=== PATIENT | female | born 1970 | race Caucasian/White ===

== ENCOUNTER 2025-09-04 12:24 | Inpatient (IN) | payer OTHER ==
[2025-09-04 12:47] LABS: #Basophils 0.04 10x3/uL (0.0-0.2); #Eosinophils 0.15 10x3/uL (0.0-0.7); #Monocytes 0.82 10x3/uL (0.11-0.59); #Neutrophils 8.01 10x3/uL (1.40-6.50); %Basophils 0.4 % (0.0-1.0); %Eosinophils 1.4 % (0.0-10.0); %Lymphocytes 15.0 % (21.0-51.0); %Monocytes 7.7 % (0.0-10.0); %Neutrophils 75.3 % (42.0-75.0); Hematocrit 41.5 % (36.0-47.0); Hemoglobin 12.8 g/dL (12.0-16.0); Mean Corpuscular Hemoglobin 22.5 pg (27.0-31.0); Mean Corpuscular Volume 72.8 fL (78.0-98.0); Platelet Count 284 10x3/uL (130-400); Red Blood Cell (RBC) Count 5.70 mill/uL (4.20-5.40); White Blood Cell (WBC) Count 10.64 10x3/uL (4.8-10.8)
[2025-09-04] MEDS ORDERED: Ondansetron PF 4 MG/2 ML Vial ONE ×2 (12:52→14:36)
[2025-09-04] MEDS ORDERED: Ketorolac Tromethamine 30 MG (1 mL) VIAL ONE (12:52)
[2025-09-04 13:04] LABS: ALT (SGPT) 16 U/L (Less than 34); AST (SGOT) 24 U/L (11-34); Albumin 3.7 g/dL (3.1-4.5); Alkaline Phosphatase 86 U/L (40-110); Anion Gap 14 mmol/L (10-20); BUN (Urea Nitrogen) 10 mg/dL (9.8-20.1); Bilirubin, Total 0.6 mg/dL (0.3-1.2); Calc. Creatinine Clearance 0 mL/min (70-130); Calcium 9.3 mg/dL (7.8-10.44); Carbon Dioxide 23 mmol/L (22-29); Chloride 109 mmol/L (98-107); Globulin 2.9 g/dL (2.4-3.5); Glucose 94 mg/dL (70-105); Lipase 18 U/L (8-78); Potassium 3.5 mmol/L (3.5-5.1); Sodium 142 mmol/L (136-145)
[2025-09-04 13:10] LABS: Microcytosis SLIGHT = 6-15 cells HPF (0-5); Ovalocytes SLIGHT = 2-5 cells HPF (0-1); Platelet Adequacy Comment Platelets Normal
[2025-09-04 14:07] LABS: CAUTI Indications for Culture Dysuria,urgency,freq; Glucose, Urine (Dipstick) Normal (Negative); Leukocyte 250 Leu/uL (Negative); Protein, Urine (Dipstick) Negative (Neg-Trace); Specific Gravity, Urine 1.009 (1.002-1.036)
[2025-09-04 14:08] LABS: Bacteria/HPF 1+ HPF (None Seen)
[2025-09-04 14:09] LABS: Urine Culture Reflex Yes Yes
[2025-09-04] MEDS ORDERED: Calcium Carbonate 500 MG ChewTAB PO PRN (14:49)
[2025-09-04] MEDS ORDERED: Ketorolac Tromethamine 30 MG (1 mL) VIAL IVP PRN (14:49)
[2025-09-04] MEDS ORDERED: Senokot S 8.6-50 MG TAB PO PRN (14:49)
[2025-09-04 15:45] VITALS: BMI 29.9
[2025-09-04] MEDS: Ketorolac Tromethamine 30 MG (1 mL) VIAL IVP PRN (20:46)
[2025-09-04] MEDS: cefTRIAXone\\ROCEPHIN 1 GM in Sodium Chloride 0.9% 100 ML IVPB SCH (20:50)
[2025-09-04] MEDS: QUEtiapine 25 MG TAB PO SCH (20:51)
[2025-09-05 05:38] LABS: #Basophils 0.04 10x3/uL (0.0-0.2); #Eosinophils 0.14 10x3/uL (0.0-0.7); #Monocytes 0.45 10x3/uL (0.11-0.59); #Neutrophils 3.65 10x3/uL (1.40-6.50); %Basophils 0.7 % (0.0-1.0); %Eosinophils 2.5 % (0.0-10.0); %Lymphocytes 22.1 % (21.0-51.0); %Monocytes 8.2 % (0.0-10.0); %Neutrophils 66.1 % (42.0-75.0); Hematocrit 34.4 % (36.0-47.0); Hemoglobin 10.2 g/dL (12.0-16.0); Mean Corpuscular Hemoglobin 22.7 pg (27.0-31.0); Mean Corpuscular Volume 76.4 fL (78.0-98.0); Platelet Count 204 10x3/uL (130-400); Red Blood Cell (RBC) Count 4.50 mill/uL (4.20-5.40); White Blood Cell (WBC) Count 5.52 10x3/uL (4.8-10.8)
[2025-09-05 05:53] LABS: Anion Gap 7 mmol/L (10-20); BUN (Urea Nitrogen) 9 mg/dL (9.8-20.1); Calc. Creatinine Clearance 67 mL/min (70-130); Calcium 8.1 mg/dL (7.8-10.44); Carbon Dioxide 28 mmol/L (22-29); Chloride 111 mmol/L (98-107); Glucose 94 mg/dL (70-105); Potassium 3.4 mmol/L (3.5-5.1); Sodium 143 mmol/L (136-145)
[2025-09-05] MEDS ORDERED: LINZESS 290 MCG PO SCH (07:30)
[2025-09-05] MEDS: Pantoprazole 40 MG DR.TAB PO SCH (07:51)
[2025-09-05] MEDS: Sertraline 25 MG TAB PO SCH (07:51)
[2025-09-05] MEDS: Acetaminophen 325 MG TAB PO PRN (14:07)
[2025-09-05] MEDS: HYDROcodone/Acetaminophen 5/325 mg Tablet PO PRN (18:00)
[2025-09-05] MEDS ORDERED: Famotidine 20 MG TAB PO SCH (21:00)
[2025-09-06 05:42] LABS: #Basophils 0.03 10x3/uL (0.0-0.2); #Eosinophils 0.16 10x3/uL (0.0-0.7); #Monocytes 0.63 10x3/uL (0.11-0.59); #Neutrophils 3.99 10x3/uL (1.40-6.50); %Basophils 0.5 % (0.0-1.0); %Eosinophils 2.5 % (0.0-10.0); %Lymphocytes 24.6 % (21.0-51.0); %Monocytes 9.8 % (0.0-10.0); %Neutrophils 62.3 % (42.0-75.0); Hematocrit 34.8 % (36.0-47.0); Hemoglobin 10.2 g/dL (12.0-16.0); Mean Corpuscular Hemoglobin 22.6 pg (27.0-31.0); Mean Corpuscular Volume 77.2 fL (78.0-98.0); Platelet Count 219 10x3/uL (130-400); Red Blood Cell (RBC) Count 4.51 mill/uL (4.20-5.40); White Blood Cell (WBC) Count 6.41 10x3/uL (4.8-10.8)
[2025-09-06 06:07] LABS: Anion Gap 9 mmol/L (10-20); BUN (Urea Nitrogen) 10 mg/dL (9.8-20.1); Calc. Creatinine Clearance 71 mL/min (70-130); Calcium 8.6 mg/dL (7.8-10.44); Carbon Dioxide 26 mmol/L (22-29); Chloride 111 mmol/L (98-107); Glucose 93 mg/dL (70-105); Magnesium 1.7 mg/dL (1.6-2.6); Potassium 4.0 mmol/L (3.5-5.1); Sodium 142 mmol/L (136-145)
[2025-09-06] MEDS: Magnesium 2 GM/50 ML(in water) 2 GM in Premix 1 BAG IVPB SCH (16:05)
[2025-09-06] MEDS: Melatonin 3 MG TAB PO PRN (20:16)
[2025-09-07 05:27] LABS: #Basophils 0.03 10x3/uL (0.0-0.2); #Eosinophils 0.16 10x3/uL (0.0-0.7); #Monocytes 0.61 10x3/uL (0.11-0.59); #Neutrophils 4.50 10x3/uL (1.40-6.50); %Basophils 0.4 % (0.0-1.0); %Eosinophils 2.4 % (0.0-10.0); %Lymphocytes 21.1 % (21.0-51.0); %Monocytes 9.1 % (0.0-10.0); %Neutrophils 66.7 % (42.0-75.0); Hematocrit 34.9 % (36.0-47.0); Hemoglobin 10.8 g/dL (12.0-16.0); Mean Corpuscular Hemoglobin 22.7 pg (27.0-31.0); Mean Corpuscular Volume 73.5 fL (78.0-98.0); Platelet Count 207 10x3/uL (130-400); Red Blood Cell (RBC) Count 4.75 mill/uL (4.20-5.40); White Blood Cell (WBC) Count 6.74 10x3/uL (4.8-10.8)
[2025-09-07 05:36] LABS: Anion Gap 13 mmol/L (10-20); BUN (Urea Nitrogen) 8 mg/dL (9.8-20.1); Calc. Creatinine Clearance 80 mL/min (70-130); Calcium 8.6 mg/dL (7.8-10.44); Carbon Dioxide 27 mmol/L (22-29); Chloride 109 mmol/L (98-107); Glucose 95 mg/dL (70-105); Potassium 3.8 mmol/L (3.5-5.1); Sodium 145 mmol/L (136-145)
[2025-09-09 08:01] VITALS: BP 124/72; TEMP 98.4
[2025-09-09] MEDS ORDERED: Scopolamine 1 mg/72 hour Patch ONE (10:05)
[2025-09-09] MEDS ORDERED: Famotidine/PF 20 mg/2ml Vial ONE (10:06)
[2025-09-09 10:46] VITALS: BMI 29.9
[2025-09-09] MEDS ORDERED: cefTRIAXone (ROCEPHIN) 1 GM VIAL ONE (10:54)
[2025-09-09] MEDS ORDERED: fentaNYL PF 100 MCG/2 ML SYRINGE ONE (11:05)
[2025-09-09] MEDS ORDERED: Rocuronium Bromide 10 MG/ML (10ML VIAL) ONE (11:06)
[2025-09-09] MEDS ORDERED: Albuterol HFA (OR) 200 PUFF INH ONE (11:42)
[2025-09-09] MEDS ORDERED: PROPOFOL 200 MG/20 ML VIAL ONE (11:42)
[2025-09-09] MEDS ORDERED: Ondansetron PF 4 MG/2 ML Vial ONE (11:57)
[2025-09-09] MEDS ORDERED: SUGAMMADEX SODIUM 200 MG/2 ML VIAL ONE (11:59)
[2025-09-09] MEDS ORDERED: Oxybutynin 5 MG TAB PO PRN (12:33)
== END 2025-09-09 15:45 | disposition home or self-care (01) | DRG 661 ==
LOC: ERS 12:24 → T4-B 14:48
PROVIDERS: ADMIT Internal Medicine; ATTEND Internal Medicine
PROC: 3E03329 Introduction of Other Anti-infective into Peripheral Vein, Percutaneous Approach (ICD-10-PCS; 2025-09-04)
PROC: 0T768DZ Dilation of Right Ureter with Intraluminal Device, Via Natural or Artificial Opening Endoscopic (ICD-10-PCS; principal; 2025-09-09)
PROC: 0TF68ZZ Fragmentation in Right Ureter, Via Natural or Artificial Opening Endoscopic (ICD-10-PCS; 2025-09-09)
DX: N13.6 Pyonephrosis (principal); K27.9 Peptic ulcer, site unspecified, unspecified as acute or chronic, without hemorrhage or perforation; K59.00 Constipation, unspecified; F32.A Depression, unspecified; F41.9 Anxiety disorder, unspecified; Z88.0 Allergy status to penicillin; Z88.8 Allergy status to other drugs, medicaments and biological substances; Z88.1 Allergy status to other antibiotic agents; Z90.49 Acquired absence of other specified parts of digestive tract; Z87.442 Personal history of urinary calculi; Z98.890 Other specified postprocedural states; Z90.710 Acquired absence of both cervix and uterus; Z83.3 Family history of diabetes mellitus; Z79.899 Other long term (current) drug therapy
CPT/HCPCS: 36415; 36416; 74176; 74420; 80048; 80053; 81001; 83690; 83735; 85025; 87086; 96365; 96375; 96376; C1747; C1758; C1769; C2617; J0696; J1100; J1308; J1885; J2250; J2270; J2272; J2405; J2550; J3475; J3480; J7030; J7120; Q0162